=== PATIENT | male | born 1980 | race Caucasian/White ===

== ENCOUNTER 2019-01-21 12:13 | Emergency (ER) | payer MEDICAID ==
[2019-01-21] MEDS ORDERED: ACETAMINOPHEN 325 MG TAB PO ONE (12:24)
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
== END 2019-01-21 13:48 | disposition home or self-care (01) ==
LOC: ER 12:13
DX: S09.90XA Unspecified injury of head, initial encounter (principal); R51 Headache; W18.2XXA Fall in (into) shower or empty bathtub, initial encounter; I10 Essential (primary) hypertension; Z87.891 Personal history of nicotine dependence
CPT/HCPCS: 99283